=== PATIENT | male | born 1945 | race Two or more races ===

== ENCOUNTER → 2017-07-25 | Outpatient (CLI) | payer OTHER, MEDICAID ==
[~2017-07-25] MED LIST: AMLO5TAB2 PO; CLOP75TA41 PO; GLIP-115 PO; LISI40TA PO; METF-371 PO; OME20T PO; REPA1TAB5 OR; SIMV-8 PO; TERA10CA36 PO
== END | disposition home or self-care (01) ==
LOC: Rad HDHVI 12:49
PROVIDERS: ATTEND Internal Medicine Cardiovascular Disease
DX: I25.5 Ischemic cardiomyopathy (principal); I11.0 Hypertensive heart disease with heart failure; I50.23 Acute on chronic systolic (congestive) heart failure
CPT/HCPCS: 93306

== ENCOUNTER → 2017-07-31 | Outpatient (CLI) | payer OTHER, MEDICAID ==
[~2017-07-31] VITALS: Ht 170.2 cm; Wt 95.3 kg
[~2017-07-31] MED LIST changes: +ADENOSINE 80 MG in GIVE UN-DILUTED 0 ML IV ONE; +ADENOSINE 90 MG/30 ML INJ IV ONE
== END | disposition home or self-care (01) ==
LOC: Rad HDHVI 09:09
PROVIDERS: ATTEND Internal Medicine Cardiovascular Disease
DX: Z01.818 Encounter for other preprocedural examination (principal); E11.9 Type 2 diabetes mellitus without complications; I25.5 Ischemic cardiomyopathy; I11.0 Hypertensive heart disease with heart failure; I50.23 Acute on chronic systolic (congestive) heart failure; E78.5 Hyperlipidemia, unspecified
CPT/HCPCS: 78452; 93005; 96374; 96375; A9500; J0153

== ENCOUNTER → 2017-08-20 | Outpatient (CLI) | payer OTHER, MEDICAID ==
[~2017-08-20] VITALS: Ht 170.2 cm; Wt 95.3 kg
[~2017-08-20] MED LIST changes: -ADENOSINE 80 MG in GIVE UN-DILUTED 0 ML IV ONE; -ADENOSINE 90 MG/30 ML INJ IV ONE
[2017-08-20 10:00] VITALS: BP 122/75
[2017-08-20 10:27] VITALS: BP 125/83
[2017-08-20 12:03] LABS: Basophils # (auto) 0 uL; Basophils % (auto) 0.5 % (0.0-2.0); Eosinophils # (auto) 0.5 uL; Eosinophils % (auto) 7.1 % (0.0-7.0); Hematocrit 39.7 % (41.0-53.0); Hemoglobin 12.9 g/dL (13.5-17.5); Lymphocytes # (auto) 2.6 uL; Lymphocytes % (auto) 34.8 % (10.0-50.0); Mean Corpuscular Hemoglobin 29.6 pg (28.0-32.0); Mean Corpuscular Hgb Conc. 32.5 g/dL (32.0-36.0); Monocytes # (auto) 0.7 uL; Monocytes % (auto) 8.9 % (0.0-12.0); Neutrophils # (auto) 3.7 uL; Neutrophils % (auto) 48.7 % (37.0-80.0); Nucleated Red Blood Cells % 0.2 %; Platelet Count (auto) 194 10^3/uL (140-450); Red Blood Cells 4.36 10^6/uL (4.5-5.90); White Blood Cell 7.6 10^3/uL (4.4-10.8)
[2017-08-20 12:13] LABS: BUN/Creatinine Ratio 13.1; Calcium 8.4 mg/dL (8.5-10.1); Potassium 4.6 mmol/L (3.5-5.1)
[2017-08-20 12:15] LABS: INR 0.96 (0.9-1.15); Partial Thromboplastin Time 26.6 sec (23.78-33.04); Prothrombin Time 10.3 sec (9.27-12.13)
== END | disposition home or self-care (01) ==
LOC: Rad HDHVI 09:54
PROVIDERS: ATTEND Internal Medicine Cardiovascular Disease
DX: Z01.818 Encounter for other preprocedural examination (principal); I10 Essential (primary) hypertension
CPT/HCPCS: 36415; 71046; 80048; 85025; 85610; 85730; 93005; G0463

== ENCOUNTER 2017-08-23 07:17 | Day surgery (SDC) | payer OTHER, MEDICAID ==
[2017-08-23] MEDS ORDERED: LIDOCAINE 2%HCL (LOCAL ANESTH.) INJ 20ML MDV ONE (08:46)
[2017-08-23] MEDS ORDERED: IODIXANOL 320MG/ML 100ML BTL IV ONE (08:46)
[2017-08-23] MEDS ORDERED: fentaNYL CITRATE 100 MCG/2 ML VL ONE (09:26)
[2017-08-23] MEDS ORDERED: VERAPAMIL 2.5MG/ML INJ 2ML VIAL IV ONE (09:26)
[2017-08-23] MEDS ORDERED: MIDAZOLAM HCL 1MG/1ML-2 ML VIAL ONE (09:26)
[2017-08-23] MEDS ORDERED: ANGIOMAX 250 MG VIAL IV ONE (09:26)
[2017-08-23] MEDS ORDERED: SODIUM CHL 0.9% 0 ML ONE (09:26)
[2017-08-23] MEDS ORDERED: EPTIFIBATIDE INJ (2MG/ML) 10ML VIAL IV ONE (09:27)
== END 2017-08-23 11:48 | disposition home or self-care (01) ==
LOC: CATH 07:17
PROVIDERS: ATTEND Internal Medicine Cardiovascular Disease
DX: R94.39 Abnormal result of other cardiovascular function study (principal); I10 Essential (primary) hypertension; E78.5 Hyperlipidemia, unspecified; E11.9 Type 2 diabetes mellitus without complications
CPT/HCPCS: C1769; C1894; J1644; J2250; J3010; J7030; Q9967; 93458; 99152

== ENCOUNTER 2023-01-16 01:58 | Emergency (ER) | payer OTHER, MEDICAID ==
[~2023-01-16] VITALS: Ht 167.6 cm; Wt 100.0 kg
[~2023-01-16 01:58] MED LIST changes: +AMLO1TAB22 PO; -AMLO5TAB2 PO; -CLOP75TA41 PO; +CLOP75TA70 PO; -GLIP-115 PO; +GLIP5TAB12 PO; -LISI40TA PO; +LISI40TA16 PO; -SIMV-8 PO; +SIMV20TA20 PO
[2023-01-16 02:36] LABS: Basophils # (auto) 0 10 ^3/uL (0-0.2); Basophils % (auto) 0.6 % (0.0-2.0); Eosinophils # (auto) 0.1 10 ^3/uL (0-0.8); Eosinophils % (auto) 1.2 % (0.0-7.0); Hematocrit 34.8 % (41.0-53.0); Hemoglobin 11.8 g/dL (13.5-17.5); Lymphocytes # (auto) 2.2 10 ^3/uL (0.4-5.4); Lymphocytes % (auto) 28.3 % (10.0-50.0); Mean Corpuscular Hemoglobin 30.6 pg (28.0-32.0); Mean Corpuscular Volume 90.1 fL (80.0-100.0); Monocytes # (auto) 0.7 10 ^3/uL (0-1.3); Monocytes % (auto) 8.9 % (0.0-12.0); Neutrophils # (auto) 4.7 10 ^3/uL (1.6-8.6); Red Blood Cells 3.87 10^6/uL (4.5-5.90); White Blood Cell 7.7 10^3/uL (4.4-10.8)
[2023-01-16 02:55] LABS: INR 1.04 (0.9-1.15); Prothrombin Time 10.9 sec (9.3-11.8)
[2023-01-16 03:00] LABS: Alanine Aminotransferase 32 U/L (7-40); Alkaline Phosphatase 116 U/L (46-116); Anion Gap 9 (5-15); Aspartate Aminotransferase 29 U/L (13-40); BUN/Creatinine Ratio 12.7 (10.0-20.0); Bilirubin, Total 0.3 mg/dL (0.2-1.0); Blood Urea Nitrogen 43 mg/dL (9-23); Calcium 9.4 mg/dL (8.7-10.4); Carbon Dioxide 23 mmol/L (20-30); Chloride 103 mmol/L (98-107); Glucose 284 mg/dL (74-106); Magnesium 1.8 mg/dL (1.6-2.6); Potassium 4.4 mmol/L (3.5-5.1); Sodium 135 mmol/L (136-145)
[2023-01-16 03:01] LABS: Total Protein 7.1 g/dL (5.7-8.2)
[2023-01-16 05:14] VITALS: BP 164/90; PULSE 73; RESP 18; O2SAT 97
[2023-01-16] MEDS ORDERED: cloNIDine HCL 0.1 MG TAB PO ONE (05:15)
== END 2023-01-16 07:43 | disposition home or self-care (01) ==
LOC: ER 01:58 → EDSEX 01:58 → EDBD 01:58 → ER 07:43
DX: R00.2 Palpitations (principal); I12.9 Hypertensive chronic kidney disease with stage 1 through stage 4 chronic kidney disease, or unspecified chronic kidney disease; E11.22 Type 2 diabetes mellitus with diabetic chronic kidney disease; N18.9 Chronic kidney disease, unspecified; Z79.899 Other long term (current) drug therapy
CPT/HCPCS: 36415; 71045; 80053; 83735; 83880; 84443; 84484; 85025; 85610; 85730; 93005

== ENCOUNTER → 2023-05-03 | Outpatient (CLI) | payer OTHER, MEDICAID ==
[~2023-05-03] MED LIST changes: +ALBUTEROL SULF 2.5 MG/0.5ML(0.5%) NEB SOLN ONE
== END | disposition home or self-care (01) ==
LOC: RT 10:25
PROVIDERS: ATTEND Internal Medicine Pulmonary Disease
DX: J44.9 Chronic obstructive pulmonary disease, unspecified (principal)
CPT/HCPCS: 94060; 94727; 94729

== ENCOUNTER → 2023-05-22 | Outpatient (CLI) | payer OTHER, MEDICAID ==
[~2023-05-22] MED LIST changes: -ALBUTEROL SULF 2.5 MG/0.5ML(0.5%) NEB SOLN ONE
[2023-05-22 10:28] LABS: Basophils # (auto) 0 10 ^3/uL (0-0.2); Basophils % (auto) 0.4 % (0.0-2.0); Eosinophils # (auto) 0.3 10 ^3/uL (0-0.8); Eosinophils % (auto) 3.5 % (0.0-7.0); Hematocrit 35.6 % (41.0-53.0); Hemoglobin 11.7 g/dL (13.5-17.5); Lymphocytes # (auto) 2.8 10 ^3/uL (0.4-5.4); Lymphocytes % (auto) 38.5 % (10.0-50.0); Mean Corpuscular Hemoglobin 30.4 pg (28.0-32.0); Mean Corpuscular Hgb Conc. 32.8 g/dL (32.0-36.0); Mean Corpuscular Volume 92.7 fL (80.0-100.0); Monocytes # (auto) 0.7 10 ^3/uL (0-1.3); Monocytes % (auto) 10.3 % (0.0-12.0); Neutrophils # (auto) 3.5 10 ^3/uL (1.6-8.6); Neutrophils % (auto) 47.3 % (37.0-80.0); Red Blood Cells 3.84 10^6/uL (4.5-5.90); Red Cell Distribution Width 15.6 % (11.8-14.3); White Blood Cell 7.3 10^3/uL (4.4-10.8)
[2023-05-22 10:30] LABS: Urine Bacteria NONE SEEN /hpf (None Seen); Urine Blood TRACE /uL (Negative); Urine Clarity Clear (Clear); Urine Color Colorless (Yellow); Urine Protein, UAD 3+ (Negative); Urine Urobilinogen Normal (Negative); Urine WBC 1 /hpf (0 - 3); Urine pH 6.5 (5.0-8.0)
[2023-05-22 10:51] LABS: Creatinine, Urine 66.68 mg/dL (30.0-125.0); Prostate Specific Antigen 1.83 ng/mL (0.0-4.0)
[2023-05-22 10:54] LABS: Alanine Aminotransferase 14 U/L (7-40); Albumin 3.9 g/dL (3.2-4.8); Alkaline Phosphatase 108 U/L (46-116); Anion Gap 8 (5-15); Aspartate Aminotransferase 14 U/L (13-40); Blood Urea Nitrogen 48 mg/dL (9-23); Carbon Dioxide 25 mmol/L (20-30); Chloride 106 mmol/L (98-107); Glucose 116 mg/dL (74-106); LDL Cholesterol 61 mg/dL (< 100); Potassium 4.7 mmol/L (3.5-5.1); Sodium 139 mmol/L (136-145); Triglycerides 145 mg/dL (< 150)
[2023-05-22 10:55] LABS: Bilirubin, Total 0.3 mg/dL (0.2-1.0); Cholesterol 116 mg/dL (< 200); HDL Cholesterol 34 mg/dL (40-59); Total Protein 6.3 g/dL (5.7-8.2)
[2023-05-22 10:56] LABS: Free T4 (Free Thyroxine) 0.92 ng/dL (0.89-1.76)
== END | disposition home or self-care (01) ==
LOC: LAB 10:05
PROVIDERS: ATTEND Internal Medicine
DX: Z00.01 Encounter for general adult medical examination with abnormal findings (principal); Z12.5 Encounter for screening for malignant neoplasm of prostate; I13.0 Hypertensive heart and chronic kidney disease with heart failure and stage 1 through stage 4 chronic kidney disease, or unspecified chronic kidney disease; E11.22 Type 2 diabetes mellitus with diabetic chronic kidney disease; I50.9 Heart failure, unspecified; N18.4 Chronic kidney disease, stage 4 (severe); E11.42 Type 2 diabetes mellitus with diabetic polyneuropathy; E11.51 Type 2 diabetes mellitus with diabetic peripheral angiopathy without gangrene
CPT/HCPCS: 36415; 80053; 80061; 81001; 82043; 82570; 83036; 84153; 84439; 84443; 85025

== ENCOUNTER → 2023-07-16 | Outpatient (CLI) | payer OTHER, MEDICAID ==
[~2023-07-16] MED LIST changes: -GLIP5TAB12 PO; +GLIP5TAB21 PO
== END | disposition home or self-care (01) ==
LOC: LAB 15:21
PROVIDERS: ATTEND Internal Medicine
DX: E11.22 Type 2 diabetes mellitus with diabetic chronic kidney disease (principal); N18.9 Chronic kidney disease, unspecified; E11.29 Type 2 diabetes mellitus with other diabetic kidney complication; E11.69 Type 2 diabetes mellitus with other specified complication; R25.2 Cramp and spasm
CPT/HCPCS: 36415; 82550

== ENCOUNTER → 2023-10-31 | Outpatient (CLI) | payer OTHER, MEDICAID ==
[2023-10-31 15:10] LABS: Basophils # (auto) 0 10 ^3/uL (0-0.2); Basophils % (auto) 0.4 % (0.0-2.0); Eosinophils # (auto) 0.3 10 ^3/uL (0-0.8); Eosinophils % (auto) 3.8 % (0.0-7.0); Hematocrit 32.6 % (41.0-53.0); Hemoglobin 10.8 g/dL (13.5-17.5); Lymphocytes % (auto) 37.5 % (10.0-50.0); Mean Corpuscular Hemoglobin 30.8 pg (28.0-32.0); Mean Corpuscular Volume 93.3 fL (80.0-100.0); Monocytes # (auto) 0.7 10 ^3/uL (0-1.3); Monocytes % (auto) 9.2 % (0.0-12.0); Neutrophils # (auto) 3.9 10 ^3/uL (1.6-8.6); Neutrophils % (auto) 49.1 % (37.0-80.0); Platelet Count (auto) 204 10^3/uL (140-450); Red Cell Distribution Width 14.7 % (11.8-14.3)
[2023-10-31 15:30] LABS: INR 0.97 (0.9-1.15); Prothrombin Time 10.3 sec (9.3-11.8)
[2023-10-31 16:11] LABS: Anion Gap 8 (5-15); Carbon Dioxide 24 mmol/L (20-30); Chloride 103 mmol/L (98-107); Sodium 135 mmol/L (136-145)
[2023-10-31 16:12] LABS: Calcium 7.2 mg/dL (8.7-10.4)
[2023-10-31 16:16] LABS: Glucose 166 mg/dL (74-106)
[2023-10-31 16:17] LABS: BUN/Creatinine Ratio 8.2 (10.0-20.0); Blood Urea Nitrogen 46 mg/dL (9-23)
[2023-11-01 09:58] LABS: Hepatitis B Surface Antibody Negative (Negative)
[2023-11-01 10:09] LABS: Hepatitis B Surface Antigen Negative (Negative)
== END | disposition home or self-care (01) ==
LOC: LAB 14:48
PROVIDERS: ATTEND Internal Medicine
DX: I15.1 Hypertension secondary to other renal disorders (principal); E11.22 Type 2 diabetes mellitus with diabetic chronic kidney disease; N18.5 Chronic kidney disease, stage 5; E11.21 Type 2 diabetes mellitus with diabetic nephropathy; D63.1 Anemia in chronic kidney disease; R60.9 Edema, unspecified; E78.00 Pure hypercholesterolemia, unspecified; E87.5 Hyperkalemia; E83.42 Hypomagnesemia; M10.00 Idiopathic gout, unspecified site; E87.20 Acidosis, unspecified; N20.0 Calculus of kidney; N25.81 Secondary hyperparathyroidism of renal origin
CPT/HCPCS: 36415; 80048; 85025; 85610; 86706; 87340

== ENCOUNTER → 2023-11-26 | Outpatient (CLI) | payer OTHER ==
[~2023-11-26] VITALS: Ht 167.6 cm; Wt 99.8 kg
[~2023-11-26] MED LIST changes: +ADENOSINE 84 MG in GIVE UN-DILUTED 0 ML IV ONE; +ADENOSINE 90 MG/30 ML INJ IV ONE
== END | disposition home or self-care (01) ==
LOC: Rad HDHVI 12:55
PROVIDERS: ATTEND Internal Medicine Cardiovascular Disease
DX: I13.2 Hypertensive heart and chronic kidney disease with heart failure and with stage 5 chronic kidney disease, or end stage renal disease (principal); E11.22 Type 2 diabetes mellitus with diabetic chronic kidney disease; I50.23 Acute on chronic systolic (congestive) heart failure; N18.5 Chronic kidney disease, stage 5; J44.9 Chronic obstructive pulmonary disease, unspecified; E78.00 Pure hypercholesterolemia, unspecified
CPT/HCPCS: 78452; 93005; 96374; A9500; J0153; 96375

== ENCOUNTER → 2024-01-28 | Outpatient (CLI) | payer OTHER, MEDICAID ==
[~2024-01-28] MED LIST changes: -ADENOSINE 84 MG in GIVE UN-DILUTED 0 ML IV ONE; -ADENOSINE 90 MG/30 ML INJ IV ONE; +ALLO100T PO; +CHOL1CAP21 PO; +CHOL50007 PO; +CLON0.1T PO; +ERGO1CAP23 PO; +FURO20TA3 PO; +MAGN400T40 PO; +POM; +POM SC; +SEVE800T8 PO
[2024-01-28 12:55] VITALS: BP 142/72; PULSE 76; RESP 16; O2SAT 95
[2024-01-28 13:14] VITALS: BP 121/66; PULSE 71; RESP 16; O2SAT 96
--- NOTE | 2024-01-28 13:28 | DVH ---
XY CHEST TWO VIEWS ROUTINE CLINICAL HISTORY: PRE OP, pain COMPARISON: None TECHNIQUE: Frontal and lateral view of the chest was obtained FINDINGS: Lines and Tubes: Right Tunneled HD catheter. Lungs: No focal consolidation. Pleura: No effusion. No pneumothorax. Cardiomediastinal contours: Unremarkable Bones: No acute osseous abnormality. IMPRESSION: No acute cardiopulmonary disease.
== END | disposition home or self-care (01) ==
LOC: Rad HDHVI 12:50
PROVIDERS: ATTEND Internal Medicine Cardiovascular Disease
DX: Z01.818 Encounter for other preprocedural examination (principal); R06.02 Shortness of breath; I25.5 Ischemic cardiomyopathy
CPT/HCPCS: 71046; 93005; G0463

== ENCOUNTER 2024-01-31 07:03 | Day surgery (SDC) | payer OTHER, MEDICAID ==
[2024-01-28 15:34] LABS: Basophils # (auto) 0 10 ^3/uL (0-0.2); Basophils % (auto) 0.5 % (0.0-2.0); Eosinophils # (auto) 0.3 10 ^3/uL (0-0.8); Eosinophils % (auto) 3.6 % (0.0-7.0); Hematocrit 37.1 % (41.0-53.0); Hemoglobin 12.6 g/dL (13.5-17.5); Lymphocytes % (auto) 42.8 % (10.0-50.0); Mean Corpuscular Hgb Conc. 34.1 g/dL (32.0-36.0); Mean Corpuscular Volume 93.9 fL (80.0-100.0); Monocytes # (auto) 0.8 10 ^3/uL (0-1.3); Monocytes % (auto) 8.7 % (0.0-12.0); Neutrophils # (auto) 4.1 10 ^3/uL (1.6-8.6); Neutrophils % (auto) 44.4 % (37.0-80.0); Nucleated Red Blood Cells % 0.2 %; Platelet Count (auto) 167 10^3/uL (140-450); Red Blood Cells 3.95 10^6/uL (4.5-5.90); White Blood Cell 9.3 10^3/uL (4.4-10.8)
[2024-01-28 15:57] LABS: INR 0.99 (0.9-1.15); Partial Thromboplastin Time 25.1 SEC (24.5-34.5); Prothrombin Time 10.5 sec (9.3-11.8)
[2024-01-28 16:12] LABS: Chloride 105 mmol/L (98-107); Sodium 139 mmol/L (136-145)
[2024-01-28 16:13] LABS: Anion Gap 11 (5-15); Carbon Dioxide 23 mmol/L (20-31)
[2024-01-28 16:14] LABS: Calcium 8.9 mg/dL (8.7-10.4)
[2024-01-28 16:18] LABS: BUN/Creatinine Ratio 6.9 (10.0-20.0); Blood Urea Nitrogen 39 mg/dL (9-23); Glucose 195 mg/dL (74-106)
[2024-01-31] VITALS (7 sets, daily range): BP systolic 96–124; BP diastolic 56–73; PULSE 55–62; RESP 13–16; O2SAT 94–98
[~2024-01-31] VITALS: Ht 167.6 cm; Wt 97.5 kg
[~2024-01-31 07:03] MED LIST changes: -AMLO1TAB22 PO; -GLIP5TAB21 PO; -LISI40TA16 PO; -METF-371 PO; -REPA1TAB5 OR; -TERA10CA36 PO
[2024-01-31] MEDS ORDERED: MIDAZOLAM HCL 2MG/2ML 2ml VIAL (1mg/ml) ONE (08:41)
[2024-01-31] MEDS ORDERED: fentaNYL CITRATE 100 MCG/2 ML VL ONE (08:41)
[2024-01-31] MEDS ORDERED: SODIUM CHL 0.9% 50 ML ONE (08:41)
[2024-01-31] MEDS ORDERED: ANGIOMAX 250 MG VIAL IV ONE (08:41)
[2024-01-31] MEDS ORDERED: LIDOCAINE 2%HCL (LOCAL ANESTH.) INJ 20ML MDV ONE (08:42)
[2024-01-31] MEDS ORDERED: IODIXANOL 320MG/ML 100ML BTL IV ONE (08:48)
[2024-01-31] MEDS ORDERED: NITROGLYCERIN 0.4MG/DOSE SPRAY 4.9GM ONE (09:07)
--- NOTE | 2024-01-31 10:24 | DVHHP ---
ADMIT DATE: 01/31/2024 HISTORY OF PRESENT ILLNESS: The patient is 78 years old with history of end-stage renal disease, on hemodialysis; history of diabetes; diabetic nephropathy; vasculopathy; nephropathy, history of retinopathy as well as blindness in the left eye. The patient is now having increasing symptoms of shortness of breath. It appears as though the patient has ischemic cardiomyopathy. Carotid Doppler also showed possible high-grade narrowing in the left internal carotid artery that too requires intervention at a later date. The patient at this time has been started on Plavix 75 mg p.o. every day and left heart catheterization has been scheduled for this patient because of ongoing chest pain, but being on hemodialysis, it may be secondary to ____. REVIEW OF SYSTEMS: The patient with no history of CVA, no history of seizure disorder, no history of any movement disorder, no visual disturbances, no hearing deficit. No gastrointestinal disorders such as dysphagia, diarrhea, constipation, irritable bowel syndrome, inflammatory bowel disease. Denies any liver disease. Denies any GI symptomatology. No bleeding diathesis such as hematemesis, hemoptysis, hematochezia or hematuria. No melena either. Lung history is negative. No history of tobacco or alcohol use at this time. Cardiovascular exam, the patient had no previous history of myocardial infarction; however, now has diminished left ventricular ejection fraction. 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 HEENT: Pupils are reactive. Funduscopic exam is benign. Sclerae anicteric, but he is blind in his left eye. The patient with ____ exudates noted on examination. Tympanic membranes are negative. Oral mucosa moist. Posterior pharynx without any exudate. NECK: Supple. Carotid pulses are 2+ symmetrical, normal upstroke and contour. No nuchal rigidity appreciated. No cervical adenopathy. No supraclavicular adenopathy. PULMONARY: Clear to auscultation. Tympanic to percussion. CARDIOVASCULAR: Regular rate. PMI, however, is laterally displaced. ABDOMEN: Soft, nontender, normal bowel sounds. Obese. Stool guaiac is trace positive. ASSESSMENT AND PLAN: Thus, the patient with end-stage renal disease, on hemodialysis, now with diminished left ventricular ejection fraction. The patient is now to undergo coronary angiography to define coronary anatomy. He also has carotid artery disease that will require carotid angiography at a later date. Pasquale Burns MD SA/HILLARY/YSABEL TID: [id number] RECEIPT: [id number]
--- NOTE | 2024-01-31 10:32 | DVHDS ---
DATE OF DISCHARGE: 01/31/2024 DISCHARGE DIAGNOSES: * Accelerated hypertension. * Diastolic dysfunction. * Systolic dysfunction, ejection fraction around 30-35% with elevated left ventricular end-diastolic pressure of 30 mmHg. HOSPITAL COURSE: The patient requires aggressive antihypertensive therapy. Once blood pressure has been adequately managed, the patient's echo should be repeated, and if indeed there is still reduced left ventricular ejection fraction less than 35%, the patient is a candidate for AICD implantation. We will continue to follow the patient. Stable at the time of discharge. DISPOSITION: Home. ACTIVITY: As instructed. DIET: Will be 2 g sodium diet. Pasquale Burns MD SA/HILLARY TID: [id number] RECEIPT: [id number]
--- NOTE | 2024-01-31 10:37 | DVHOP ---
DATE OF SURGERY: 01/31/2024 The patient who is 78 years old now underwent: * Selective left and right coronary angiography. * Ventriculogram. * Right iliac angiography and abdominal aortography. The patient with a hip arthroplasty. Now significant calcification and tortuosity of the right iliac after abdominal aortography. We were able to put a long sheath in for angiography. There were no complications. The patient tolerated the procedure well. Right femoral arteriotomy site was closed using the Angio-Seal device. RESULTS: * Left main without any flow restrictive lesion. * Left anterior descending mild intimal irregularity without any flow restrictive lesion. * Circumflex without any flow restrictive lesion. * Right coronary artery dominant system without any flow restrictive lesion. * Left ventricular function showed, however, global hypokinesis and estimated EF around 30%-35% with an LVEDP was elevated at 30-35 mmHg with left ventricular systolic pressure was elevated at 180. Thus, there was no gradient across the aortic valve. The patient received two 800 mcg of sublingual nitroglycerin with his blood pressure promptly improved to 140 systolic. Thus, the patient with diastolic dysfunction, systolic heart failure with ejection fraction of 30% with normal coronary anatomy. At this time, conservative medical management. The patient should be considered for AICD. Pasquale Burns MD SA/ISABEL/JENNA TID: [id number] RECEIPT: [id number]
== END 2024-01-31 11:45 | disposition home or self-care (01) ==
LOC: CATH 07:03
PROVIDERS: ATTEND Internal Medicine Cardiovascular Disease
DX: R06.02 Shortness of breath (principal); I25.5 Ischemic cardiomyopathy; E11.40 Type 2 diabetes mellitus with diabetic neuropathy, unspecified; I13.11 Hypertensive heart and chronic kidney disease without heart failure, with stage 5 chronic kidney disease, or end stage renal disease; E11.22 Type 2 diabetes mellitus with diabetic chronic kidney disease; N18.6 End stage renal disease; Z99.2 Dependence on renal dialysis; Z79.02 Long term (current) use of antithrombotics/antiplatelets; Z79.899 Other long term (current) drug therapy
CPT/HCPCS: 36415; 80048; 85025; 85610; 85730; 93458; C1760; C1769; C1894; J0583; J1644; J2250; J3010; J7030; Q9967; 99152

== ENCOUNTER → 2024-03-17 | Outpatient (CLI) | payer OTHER, MEDICAID ==
[~2024-03-17] MED LIST changes: +AMLO1TAB22 PO; +INSLANTI SC; +METO25TA93 PO; +REPA1TAB5 PO; +SACU1TAB PO; +TERA10CA36 PO
[2024-03-17 09:24] VITALS: BP 134/63; PULSE 83; RESP 18; O2SAT 95
[2024-03-17 09:33] VITALS: BP 144/70; PULSE 72; RESP 17; O2SAT 98
--- NOTE | 2024-03-17 12:28 | DVH ---
Chest x-ray Technique: PA and lateral views Comparison: 01/28/2024 CLINICAL INDICATION: Shortness of breath FINDINGS: Central line tip at the atriocaval junction. Heart size borderline. Aorta slightly tortuou s. No infiltrates or effusions. Scoliosis with degenerative changes in the spine IMPRESSION: 1. Compared to previous exam no acute cardiopulmonary pathology
== END | disposition home or self-care (01) ==
LOC: Rad HDHVI 09:16
PROVIDERS: ATTEND Internal Medicine Cardiovascular Disease
DX: Z01.810 Encounter for preprocedural cardiovascular examination (principal); I50.43 Acute on chronic combined systolic (congestive) and diastolic (congestive) heart failure; M47.814 Spondylosis without myelopathy or radiculopathy, thoracic region
CPT/HCPCS: 71046; 93005; G0463

== ENCOUNTER 2024-03-20 06:57 | Day surgery (SDC) | payer OTHER, MEDICAID ==
[2024-03-17 12:38] LABS: Basophils # (auto) 0 10 ^3/uL (0-0.2); Basophils % (auto) 0.4 % (0.0-2.0); Eosinophils # (auto) 0.1 10 ^3/uL (0-0.8); Eosinophils % (auto) 1.6 % (0.0-7.0); Hematocrit 33.7 % (41.0-53.0); Hemoglobin 11.8 g/dL (13.5-17.5); Lymphocytes # (auto) 2.7 10 ^3/uL (0.4-5.4); Lymphocytes % (auto) 33.4 % (10.0-50.0); Mean Corpuscular Hemoglobin 33.5 pg (28.0-32.0); Mean Corpuscular Volume 95.7 fL (80.0-100.0); Monocytes # (auto) 0.7 10 ^3/uL (0-1.3); Monocytes % (auto) 8.5 % (0.0-12.0); Neutrophils # (auto) 4.6 10 ^3/uL (1.6-8.6); Neutrophils % (auto) 56.1 % (37.0-80.0); Nucleated Red Blood Cells % 0.1 %; Platelet Count (auto) 195 10^3/uL (140-450); Red Blood Cells 3.52 10^6/uL (4.5-5.90); Red Cell Distribution Width 16.8 % (11.8-14.3); White Blood Cell 8.1 10^3/uL (4.4-10.8)
[2024-03-17 13:04] LABS: INR 0.99 (0.9-1.15); Partial Thromboplastin Time 25.6 SEC (24.5-34.5); Prothrombin Time 10.5 sec (9.3-11.8)
[2024-03-17 13:31] LABS: Chloride 103 mmol/L (98-107); Sodium 139 mmol/L (136-145)
[2024-03-17 13:32] LABS: Anion Gap 10 (5-15); Carbon Dioxide 26 mmol/L (20-31)
[2024-03-17 13:33] LABS: Calcium 9.2 mg/dL (8.7-10.4)
[2024-03-17 13:37] LABS: BUN/Creatinine Ratio 7.1 (10.0-20.0)
[2024-03-17 13:42] LABS: Blood Urea Nitrogen 28 mg/dL (9-23); Glucose 221 mg/dL (74-106)
[2024-03-20] VITALS (10 sets, daily range): BP systolic 142–171; BP diastolic 79–97; PULSE 67–76; RESP 11–18; TEMP 98.1; O2SAT 92–97
[~2024-03-20] VITALS: Ht 167.6 cm; Wt 96.6 kg
[~2024-03-20 06:57] MED LIST changes: -ERGO1CAP23 PO; -POM SC
[2024-03-20] MEDS ORDERED: LIDOCAINE 2%HCL (LOCAL ANESTH.) INJ 20ML MDV ONE (09:04)
[2024-03-20] MEDS ORDERED: MIDAZOLAM HCL 2MG/2ML 2ml VIAL (1mg/ml) ONE (09:04)
[2024-03-20] MEDS ORDERED: VANCOMYCIN 1GM/250ML KIT 250 ML IV ONE (09:04)
[2024-03-20] MEDS ORDERED: VANCOMYCIN HCL 1000 MG VL ONE (09:04)
[2024-03-20] MEDS ORDERED: fentaNYL CITRATE 100 MCG/2 ML VL ONE (09:04)
[2024-03-20] MEDS ORDERED: IODIXANOL 320MG/ML 100ML BTL IV ONE (09:44)
[2024-03-20] MEDS ORDERED: HYDROmorphone HCL 2 MG/ML VL/or syr ONE (10:02)
--- NOTE | 2024-03-20 11:14 | DVH ---
CHEST RADIOGRAPH Indication: S/P PACEMAKER Technique: Single frontal view of the chest was obtained Comparison: XY CHEST PORTABLE on DOS: 01/16/23 FINDINGS: Lines and Tubes: There is a right central venous catheter with its tip terminating in the right atriu m. AICD left-sided noted. Lungs: No focal airspace disease. Pleura: No effusion. No pneumothorax. Cardiomediastinal contours: Unremarkable Bones: No acute osseous abnormality. IMPRESSION: 1. Left chest wall AICD.
--- NOTE | 2024-03-20 11:47 | DVHHP ---
ADMIT DATE: 03/20/2024 HISTORY OF PRESENT ILLNESS: The patient is 78 years old who underwent left heart catheterization, shows normal coronary anatomy; however, the patient's ejection fraction is less than 25%. The patient with combination of diastolic and systolic heart failure. The patient is also morbidly obese. The patient's blood pressure is significantly elevated. Therefore, Entresto has been initiated as well and with the combination, blood pressure is under excellent control. He is already on a beta abiodun. He has had maximized medical management, more than 90 days now, to undergo Bi-V AICD implantation. He is pacer dependent, I think, because he has intermittent marked bradycardia and with titration of beta abiodun, he is having more episodes of bradycardia. Since the patient will be paced, I believe right ventricular pacing is not optimal for this patient and therefore LV pacing will also be provided for the patient. REVIEW OF SYSTEMS: The patient has no history of CVA, no seizure disorder. No history of any movement disorder. No visual disturbances. No hearing deficit. No GI symptomatology such as dysphagia, diarrhea, constipation, irritable bowel syndrome, inflammatory bowel disease. Denies any liver disease. Denies any GI symptomatology. No bleeding diathesis such as hematemesis, hemoptysis, hematochezia, hematuria or melena. Lungs, no history of tobacco or alcohol use. Cardiovascular, no history of myocardial infarction. FAMILY HISTORY: Negative. SOCIAL HISTORY: Negative. PHYSICAL EXAMINATION: VITAL SIGNS: Blood pressure was elevated at the time of examination, but his subsequent blood pressure has been in the 130s. Heart rate 76, O2 saturation 94% on room air. HEENT: Pupils are reactive. Funduscopic exam is benign. Sclerae anicteric. No exudates noted. Tympanic membranes are negative. Oral mucosa moist. Posterior pharynx without any exudate. NECK: Supple. PULMONARY: Clear to auscultation. CARDIOVASCULAR: Regular rate. PMI is diffuse. ABDOMEN: Soft, obese. Unable to appreciate organomegaly. Stool guaiac is negative. NEUROLOGIC: The patient is intact. EXTREMITIES: 1+ edema, 1+ pulses. ASSESSMENT AND PLAN: Thus, the patient with dilated cardiomyopathy, now to undergo Bi-V AICD generator change. Risks and benefits were explained to the patient. Pasquale Burns MD SA/ANTONINO TID: [id number] RECEIPT: [id number]
--- NOTE | 2024-03-20 12:06 | DVHOP ---
DATE OF SURGERY: 03/20/2024 PROCEDURES PERFORMED: * Bi-V AICD implantation. * Venography. * Conscious sedation. DESCRIPTION OF PROCEDURE: The patient was prepped and draped under sterile condition. Xylocaine 1% used to anesthetize the left subclavicular region. Venography was performed. Following that, the left subclavian vein was engaged via the Seldinger technique. Using a #10 blade, linear incision was made. Using blunt dissection and electrocautery, a pocket was dissected out. Using 7-[place] sheath, three additional guidewires were placed guidewire was used for RA. The second was RV and third was LV. Using a 10.5-[place] peel-away sheath and a coronary sinus guide catheter, we were able to cannulate the coronary sinus. Coronary sinus lead was then appropriately positioned. Threshold parameters obtained. Lead was secured to the chest wall using 0 Ethibond. Similarly using a 10.5-[place] sheath, the right ventricular active fixation lead then appropriately positioned. Threshold parameters obtained. Lead was secured to the chest wall using 0 Ethibond. Using a 7-[place] peel-away sheath, the right atrial active fixation lead then appropriately positioned. Threshold parameters obtained. Lead was secured to the chest wall using 0 Ethibond. Generator was implanted. Pocket was irrigated using vancomycin and saline solution. Pocket was closed using 3-0 Monoderm subcutaneous sutures followed by 3-0 Monoderm subcuticular sutures. There were no complications. The patient tolerated the procedure well. RESULTS: The patient had an MRI compatible Bi-V AICD [employer] civil engineering manager Rivacor 7 HF-T QP, model number 797727, serial number [id number]. LV lead is Sentus ProMRI OTW QP L85-49, model number 837773, serial number [id number]. RV lead is Plexa ProMRI SD 65-18, model number 87749, serial number [id number]. Atrial lead is Solia S 45, model number 059629, serial number [id number]. Threshold parameters: Atrium P-wave amplitude 5.5 millivolts, threshold 1.4 volts at 0.4 milliseconds pulse duration, pacing impedance of 540 ohms. Right ventricular lead: R-wave amplitude 24.7 millivolts, threshold of 0.5 volts at 0.4 milliseconds pulse duration, pacing impedance of 580 ohms. Right ventricular lead: R-wave amplitude of 22.3 millivolts, threshold of 0.6 volts at 0.4 milliseconds pulse duration, pacing impedance of 235 ohms. Shock impedance of 49 ohms. CONCLUSION: The patient has successful implantation of Bi-V AICD [employer] civil engineering manager. Pasquale Burns MD SA/ISABEL/ILYA TID: [id number] RECEIPT: [id number]
--- NOTE | 2024-03-20 12:31 | DVHDS ---
DATE OF DISCHARGE: 03/20/2024 DISCHARGE DIAGNOSES: * Status post biventricular automatic implantable cardioverter defibrillator implantation. * The patient with dilated cardiomyopathy, normal left ventricular ejection fraction. He is with maximized medical management. HOSPITAL COURSE: The patient underwent successful BiV AICD implantation. He is going to be paced. Because of beta abiodun and underlying bradycardia and because of that, BiV AICD was implanted because we wanted to avoid ____ in the right ventricular function. Therefore, the patient is clinically stable, now being discharged home, will be sent home on Keflex 500 mg q.i.d. for 7 days. Follow up with me in 1 week. Stable at the time of discharge. DISPOSITION: Home. ACTIVITY: As instructed. DIET: Will be 2 g sodium diet. Pasquale Burns MD SA/HILLARY/DIDIER TID: [id number] RECEIPT: [id number]
--- NOTE | 2024-03-21 12:27 | ECG ---
[facility] Test Date: 2024-03-20 Test Time: 10:37:56 Pat Name: RUTH BERRIOS Department: Room: Gender: M Circuits Engineer: Fadi SILVA : [id number] Requested By: TUYET CHRISTIANSON Order Number: [id number] Reading MD: Mickey Bishop Measurements Intervals [place] Rate: 73 P: 34 DE: 114 QRS: -8 QRSD: 90 T: 35 QT: 418 QTc: 460 Interpretive Statements Normal sinus rhythm Electronic ventricular pacemaker Electronically Signed On 03-24-2024 8:26:42 PST by Mickey Bishop Please click the below link to view image of tracing.
== END 2024-03-20 14:01 | disposition home or self-care (01) ==
LOC: CATH 06:57
PROVIDERS: ATTEND Internal Medicine Cardiovascular Disease
DX: I11.0 Hypertensive heart disease with heart failure (principal); I50.22 Chronic systolic (congestive) heart failure; I42.0 Dilated cardiomyopathy; I25.5 Ischemic cardiomyopathy; E66.01 Morbid (severe) obesity due to excess calories; Z68.34 Body mass index [BMI] 34.0-34.9, adult; R07.9 Chest pain, unspecified
CPT/HCPCS: 33249; 36415; 71045; 80048; 85025; 85610; 85730; 93005; C1730; C1769; C1882; C1887; C1894; J1171; J2250; J3010; J3370; Q9967; 33225; 99152; 99153

== ENCOUNTER → 2024-04-17 | Outpatient (CLI) | payer OTHER, MEDICAID ==
--- NOTE | 2024-04-18 08:33 | DVHSR ---
APPROVED REPORT EXAM: Two-dimensional and M-mode echocardiogram with Doppler and color Doppler. DIMENSIONS LVDd4.6 (3.8-5.7cm)LA (2D)4.4 (1.9-4.0cm)Aortic Root2.8 (2.0-3.7cm) LVDs3.1 (2.5-4.0cm)LA (MM) (1.9-4.0cm)Aortic Cusp Exc1.9 (1.5-2.0cm) EF (%) 59.0 (55-70%)Rt. Atrium3.7 (1.9-4.0cm)Asc. Aorta cm IVSd1.1 (0.7-1.1cm)RV (D)3.1 (1.8-2.4cm) PWd1.5 (0.7-1.1cm) Mitral Valve MitralMitral Stenosis E wave0.59m/sMV Mean GR.mmHg A wave1.10m/sMV Peak GR.21mmHg E/A ratio0.52D MVAcm2 DECEL [id number] 1/2 Timems Aortic Valve Aortic ValveAortic Stenosis V11.04m/Terry Mean GR.4mmHg V21.52m/Terry Peak GR.9mmHg Pulmonic Valve V20.68m/s Tricuspid Valve TR Velocity1.64m/s [id number] LEFT VENTRICLE The Ejection Fraction is >55%. ATRIA The left atrium is mildly dilated. The right atrium size is normal. MITRAL VALVE The mitral valve is normal in structure and function. Mitral regurgitation is trace to mild. PULMONIC VALVE The pulmonic valve is not well visualized. There is trace pulmonic valvular regurgitation. TRICUSPID VALVE The tricuspid valve is grossly normal. AORTIC VALVE The aortic valve is mildlysclerotic. No aortic regurgitation is present. GREAT VESSELS The aortic root is normal size. PERICARDIAL EFFUSION There is no pericardial effusion. Conclusion EF >55% LVH LAE MILD AV SCLEROSIS
== END | disposition home or self-care (01) ==
LOC: Rad HDHVI 15:58
PROVIDERS: ATTEND Internal Medicine Cardiovascular Disease
DX: I08.0 Rheumatic disorders of both mitral and aortic valves (principal); Z95.0 Presence of cardiac pacemaker
CPT/HCPCS: 93306

== ENCOUNTER 2025-01-27 09:02 | Outpatient (CLI) | payer OTHER, MEDICAID ==
[~2025-01-27] VITALS: Ht 167.6 cm; Wt 97.5 kg
[2025-01-27] MEDS ORDERED: ADENOSINE 90 MG/30 ML INJ IV ONE (09:58)
[2025-01-27] MEDS ORDERED: ADENOSINE 82 MG in GIVE UN-DILUTED 0 ML IV ONE (12:00)
[2025-01-29] MEDS ORDERED: SODI650T PO (11:48)
== END 2025-01-27 17:00 | disposition home or self-care (01) ==
LOC: Rad HDHVI 09:02
PROVIDERS: ATTEND Internal Medicine Cardiovascular Disease
DX: I49.3 Ventricular premature depolarization (principal); I13.0 Hypertensive heart and chronic kidney disease with heart failure and stage 1 through stage 4 chronic kidney disease, or unspecified chronic kidney disease; N18.9 Chronic kidney disease, unspecified; I50.33 Acute on chronic diastolic (congestive) heart failure; E11.22 Type 2 diabetes mellitus with diabetic chronic kidney disease; R42 Dizziness and giddiness; I20.9 Angina pectoris, unspecified; J44.9 Chronic obstructive pulmonary disease, unspecified; E78.5 Hyperlipidemia, unspecified; E11.42 Type 2 diabetes mellitus with diabetic polyneuropathy; Z99.2 Dependence on renal dialysis; Z95.0 Presence of cardiac pacemaker
CPT/HCPCS: 78452; 93017; A9500; J0153

== ENCOUNTER 2025-02-02 06:07 | Day surgery (SDC) | payer OTHER, MEDICAID ==
[2025-01-29 10:51] LABS: Hematocrit 35.2 % (41.0-53.0); Hemoglobin 12.0 g/dL (13.5-17.5); Mean Corpuscular Hemoglobin 33.3 pg (28.0-32.0); Mean Corpuscular Volume 97.7 fL (80.0-100.0); Nucleated Red Blood Cells % 0.0 %
[2025-01-29 10:59] LABS: Urine Protein, UAD 1+ (Negative)
[2025-01-29 11:00] LABS: INR 0.99 (0.9-1.15); Partial Thromboplastin Time 27.0 SEC (24.5-34.5); Prothrombin Time 10.5 sec (9.3-11.8)
[2025-01-29 11:13] LABS: Alanine Aminotransferase 19 U/L (7-40); Albumin 4.1 g/dL (3.2-4.8); Alkaline Phosphatase 104 U/L (46-116); Anion Gap 11 (5-15); BUN/Creatinine Ratio 8.1 (10.0-20.0); Bilirubin, Total 0.4 mg/dL (0.2-1.0); Carbon Dioxide 28 mmol/L (20-31); Chloride 101 mmol/L (98-107); Potassium 4.6 mmol/L (3.5-5.1); Sodium 140 mmol/L (136-145); Total Protein 7.0 g/dL (5.7-8.2)
[2025-01-29 11:22] LABS: Blood Urea Nitrogen 39 mg/dL (9-23); Calcium 8.5 mg/dL (8.7-10.4); Glucose 119 mg/dL (74-106)
[~2025-02-02] VITALS: Ht 167.6 cm; Wt 97.5 kg
[~2025-02-02 06:07] MED LIST changes: +SODI650T PO; -TERA10CA36 PO
[2025-02-02] MEDS ORDERED: fentaNYL CITRATE 100 MCG/2 ML VL ONE (06:47)
[2025-02-02] MEDS ORDERED: PROPOFOL 10 MG/ML 20 ML IV ONE (06:48)
[2025-02-02] MEDS ORDERED: PHENYLEPHRINE HCL 10 MG/ML VL ONE (06:50)
[2025-02-02] MEDS: ceFAZolin 2 GM/D5W50ml 50 ML IV ONE (07:25)
[2025-02-02] MEDS: BUPIVACAINE 0.25% INJ 50ML VIAL ONE (07:45)
[2025-02-02] MEDS: HEPARIN SODIUM (PORCINE) 5000 UNITS/ML 1ML VIAL ONE (07:45)
[2025-02-02] MEDS: LIDOCAINE 1% HCL (LOCAL ANESTH.) INJ 20ML MDV ONE (07:45)
[2025-02-02 08:06] VITALS: PULSE 64; RESP 12; TEMP 97.8; O2SAT 100
[2025-02-02 08:21] VITALS: O2SAT 96
--- NOTE | 2025-02-02 08:34 | DVHOP2 ---
Operative Report - 2 Report Details Date: 02/02/25 Preop Diagnosis: right hand swelling Postop Diagnosis: right accessory branch avf ligation Surgeon: Kuldip Sigaal MD Anesthesiologist: corwin Anesthesia: Mac Consent: The patient was informed of the risks and benefits of the procedure. These include but are not limited to complications of anesthesia, postoperative infection, incomplete relief of symptoms, recurrence of symptoms, damage to blood vessels, nerves and tendons, deep venous thrombosis, pulmonary embolism and possible need for repeat surgery in the future. Estimated Blood Loss: 5ml Name of Procedure Performed right avf branch ligation Procedure Details Procedure Details: The patient was identified in the preop hold area. The patient was consented for preop by myself. The patient was brought back to the [facility] operative table in supine position after adequate induction of anesthesia antibiotics time-out. The right arm was then prepped and draped worse fashion ultrasound was then used to identify the the large accessory branch of the AV fistula. Surgeon was made directly adjacent to the right radiocephalic arteriovenous. Dissection was taken down to identify the large branch coming off of the cephalic vein. This was circumferential uncontrolled and then ligated with 2 3- 0 silk sutures. At this point in time no other branching veins were noted. The wound was then irrigated out and then closed with a deep layer 3-0 Vicryl sutures followed by 4-0 Monocryl subcuticular suture. Dermabond was used for skin. Sponge needle counts were correct. Condition Good Disposition Home KULDIP SIGALA Jr., MD Feb 02, 2025 08:34
[2025-02-02 08:36] VITALS: BP 154/67; PULSE 61; RESP 14
== END 2025-02-02 08:49 | disposition home or self-care (01) ==
LOC: SUR 06:07
PROVIDERS: ATTEND Surgery Vascular Surgery
DX: I13.2 Hypertensive heart and chronic kidney disease with heart failure and with stage 5 chronic kidney disease, or end stage renal disease (principal); E11.22 Type 2 diabetes mellitus with diabetic chronic kidney disease; I50.9 Heart failure, unspecified; N18.6 End stage renal disease; E66.01 Morbid (severe) obesity due to excess calories; I25.10 Atherosclerotic heart disease of native coronary artery without angina pectoris; M10.9 Gout, unspecified; Z99.2 Dependence on renal dialysis; Z68.35 Body mass index [BMI] 35.0-35.9, adult; Z79.899 Other long term (current) drug therapy; Z95.810 Presence of automatic (implantable) cardiac defibrillator; Z79.4 Long term (current) use of insulin; Z79.01 Long term (current) use of anticoagulants
CPT/HCPCS: 36415; 37607; 80053; 81001; 82962; 85025; 85610; 85730; 86850; 86900; 86901; J0690; J1644; J2003; J2371; J2704; J3010; J3490